=== PATIENT | female | born 1980 | race Caucasian/White ===

== ENCOUNTER → 2016-06-11 | Outpatient (CLI) | payer OTHER ==
--- NOTE | 2016-06-11 15:36 | US ---
June 11, [address] Nelson Chairez, Thank you for requesting consultation and a detailed obstetrical ultrasound for Mrs. Watts secondary to advanced maternal age. As you know, Mary is a 35 year-old 2, para 1001. Her due sherwin e is 10/30/16 by LMP and early ultrasound. Her current gestational age based on this dating is 19 we eks 6 days. Her genetic screening revealed a reassuring NIPT. Her first was complicated b y a chorioangioma which required serial surveillance in her first . She delivered vaginally at term. ULTRASOUND Number of fetuses: 1 Placental location: Anterior; no evidence of previa Placental Cord Insertion: Intraplacental presentation: Breech Cervix: 3.4 cm viewed transabdominally Maximum vertical pocket: 4.4 cm The adnexa were evaluated. No pathology was seen. Right ovary is visualized and appears normal it measures 3.7 x 2.3 x 1.7 cm. Left ovary is visualized and appears normal. It measures 2.7 x 1.4 x 2.9 cm. MEASUREMENTS: Biparietal diameter: 48 mm 20 weeks, 5 days Head circumference: 176 mm 20 weeks, 1 days Abdominal circumference: 160 mm 21 weeks, 1 days Femur length: 32 mm 20 weeks, 1 days Humerus length: 30 mm 20 weeks, 0 days Transcerebellar diameter: 20 mm 19 weeks, 1 days Average ultrasound age: 20 weeks, 4 days Estimated weight: 363 gm weight percentile: 84 % ANATOMY Supratentorial brain: Normal including choroids, falx and cavum septum pellucidum Lateral Ventricle: Normal; measurement: 5.8 mm Posterior fossa: Normal including the cerebellum and cisterna magna Spine: Normal Nuchal fold: Normal; measurement: 3.9 mm Face: Normal views of the lip and nose area Profile: Normal Palate: Normal appearance of the alveolar ridge Cardiac Exam: Four chamber view of the heart: Normal including intraventricular septum Left Ventricular Outflow Tract: Normal Right Ventricular Outflow Tract: Normal 3 Vessel View: Normal Tracheal View: Suboptimal Aortic Arch: Normal Ductal Arch: Normal SVC/IVC: Limited; appear normal Heart Rate: 146 bpm Diaphragm: No overt abnormalities have been detected Stomach: Normal Umbilical cord insertion: Normal Right kidney: Normal Left kidney: Normal Bladder: Normal Number of cord vessels: Three Upper extremities: Normal including the number, and architecture Lower extremities: Normal including the number and architecture Gender: Female IMPRESSION: 1. Intrauterine at 19w 6d, DEBI of 10/30/16. This is consistent with her previously establ ished dates. 2. Today's sonogram reveals a normal appearing fetus. 3. Cervical length measures 3.4 cm, and is without evidence of insufficiency. 4. Advanced maternal age; reassuring NIPT RECOMMENDATIONS: I was pleased to review today's ultrasound with your patient. I have reassured her that the gr owth and amniotic fluid volume are appropriate for this gestational age. The detailed anatomic surve y did not reveal any overt abnormalities. Mary is aware that ultrasound is a screening to ol and cannot provide definitive genetic diagnosis. Should she desire definitive genetic diagnosis, she would need to have a genetic amniocentesis performed. After our discussion regarding the procedu re, benefits, risks, alternatives, and limitations to the information received Mary DECLINES amni ocentesis. Future ultrasound and consultation is left to your clinical discretion. Thank you for allowing me the opportunity to consult and evaluate your patient. Should you have any questions or concerns please do not hesitate to contact me. This visit was approximately 15 minutes in length with 10 minutes spent in direct face to face consultation reviewing aneuploidy screening ve rsus definitive genetic diagnosis. Sincerely, Jacey Andrade MD [employer] Specialist Maternal Medicine Department of Obstetrics & Gynecology [facility]
--- NOTE | 2016-06-11 17:15 | US ---
Complete Obstetric Ultrasound History: 35-year-old with estimated gestational age of 19 weeks 6 days and EDC of October 30, 2016, hist ory of chorioangioma with previous . Comparison: OB ultrasound May 03, 2016. Findings: Number: 1 Presentation: Breech Placental location: Anterior. No previa. Cervix: Closed, measuring 3.4 cm transabdominally Maximum vertical pocket: 4.4 cm The ovaries are normal. Biometry: Biparietal diameter: 48 mm 20 weeks, 5 days Head circumference: 176 mm 20 weeks, 1 days Abdominal circumference: 160 mm 21 weeks, 1 days Femur length: 32 mm 20 weeks, 1 days Humeral length: 30 mm 20 weeks, 0 days Transcerebellar diameter: 20 mm 19 weeks, 1 days Average ultrasound age: 20 weeks, 4 days EDC based on today's average ultrasound age: 20 weeks 4 days Estimated weight is 363 grams +/- 53 grams. The estimated weight percentile is 84% based on previous dating. ANATOMY SURVEY: Supratentorial brain: Normal Posterior fossa: Normal Spine: Normal Nose and lips: Normal Heart: Four chamber heart with heart rate of 146 . Stomach: Normal Umbilical cord insertion: Normal Kidneys: Normal Bladder: Normal Number of cord vessels: Three Upper extremities: Visualized Lower extremities: Visualized Impression: 1. Living single intrauterine with size concordant with dates. 2. Unremarkable anatomy. Please see separate dictation for consultation performed by Jacey Andrade MD, the same day.
== END ==
LOC: FIMAGING 14:38
PROVIDERS: ATTEND Obstetrics & Gynecology
DX: O09.522 Supervision of elderly multigravida, second trimester (principal); Z3A.19 19 weeks gestation of pregnancy

== ENCOUNTER 2016-10-24 07:21 | Observation (INO) | payer OTHER | END 2016-10-24 08:09 | disposition home or self-care (01) | LOC: FLD 07:21 | PROVIDERS: ADMIT Obstetrics & Gynecology; ATTEND Obstetrics & Gynecology | DX: O36.8130 Decreased fetal movements, third trimester, not applicable or unspecified (principal); O09.523 Supervision of elderly multigravida, third trimester; Z3A.39 39 weeks gestation of pregnancy | CPT/HCPCS: 59025; G0378 ==

== ENCOUNTER 2016-10-28 02:51 | Inpatient (IN) | payer OTHER ==
[2016-10-28] MEDS ORDERED: OXYTOCIN/RINGERS LACTATE 1,000 ML IV PRN (03:20)
[2016-10-28] MEDS ORDERED: LR 1,000 ML IV PRN (03:20)
[2016-10-28] MEDS ORDERED: TERBUTALINE SULFATE 1 MG/ML VIAL IV PRN (03:20)
[2016-10-28] MEDS ORDERED: EPSOM SALT 454 GM TP PRN (03:20)
[2016-10-28] MEDS ORDERED: OLIVE OIL 118 ML BTL MISC PRN (03:20)
[2016-10-28] MEDS ORDERED: LIDOCAINE 1% 300 MG/30 ML SDV ONE ×2 (03:24→03:28)
[2016-10-28] MEDS ORDERED: AMMONIA AROMATIC 1 EACH AMP IH ONE ×2 (03:24→03:29)
[2016-10-28] MEDS ORDERED: TERBUTALINE SULFATE 1 MG/ML VIAL ONE ×2 (03:24→03:29)
[2016-10-28] MEDS ORDERED: OXYTOCIN 10 UNIT/ML VIAL ONE ×2 (03:24→03:29)
[2016-10-28] MEDS ORDERED: OLIVE OIL 118 ML BTL ONE ×2 (03:24→03:29)
[2016-10-28] MEDS ORDERED: MISOPROSTOL 200 MCG TAB ONE ×2 (03:25→03:30)
[2016-10-28] MEDS ORDERED: CLINDAMYCIN 900 MG/DEXTROSE/50 ML BAG IV ONE (03:26)
[2016-10-28] MEDS ORDERED: OXYTOCIN/RINGERS LACTATE 20 UNIT/1,000 ML BAG IV ONE (03:55)
[2016-10-28 04:01] LABS: % IMMATURE GRANULYOCYTES 0.4 % (0.0-1.1); ABSOLUTE IMMATURE GRANULOCYTES 0.03 10^3/uL (0.00-0.10); ADD DIFF? NO; ADD MORPH? NO; ADD SCAN? NO; ATYPICAL LYMPHOCYTE FLAG 10 (0-99); FRAGMENT RBC FLAG 0 (0-99); HEMATOCRIT 43.7 % (38.0-47.0); HEMOGLOBIN 15.2 g/dL (12.6-16.3); LEFT SHIFT FLG 0 (0-99); LIPEMIA HEMOLYSIS FLAG 90 (0-99); MEAN CELL HEMOGLOBIN 32.6 pg (27.9-34.1); MEAN CELL HEMOGLOBIN CONCENTR. 34.8 g/dL (32.4-36.7); MEAN CELL VOLUME 93.8 fL (81.5-99.8); MEAN PLATELET VOLUME 12.8 fL (8.7-11.7); PLATELET CLUMPS FLAG 0 (0-99); PLATELET COUNT 154 10^3/uL (150-400); RED BLOOD CELL COUNT 4.66 10^6/uL (4.18-5.33); RED CELL DISTRIBUTION WIDTH 12.5 % (11.5-15.2)
[2016-10-28 04:20] LABS: ALANINE AMINOTRANSFERASE 22 IU/L (9-52); ASPARTATE AMINOTRANSFERASE 22 IU/L (14-46); BILIRUBIN,TOTAL 0.5 mg/dL (0.1-1.4); BILIRUBIN-CONJUGATED 0.3 mg/dL (0.0-0.5); BILIRUBIN-UNCONJUGATED 0.2 mg/dL (0.0-1.1); CREATININE 0.7 mg/dL (0.6-1.0); GLOMERULAR FILTRATION RATE > 60; LACTATE DEHYDROGENASE 424 IU/L (313-618); URIC ACID 6.4 mg/dL (2.5-6.8)
[2016-10-28] MEDS ORDERED: METHYLERGONOVINE MAL 0.2 MG/ML INJ ONE (04:35)
[2016-10-28] MEDS ORDERED: fentaNYL 100 MCG/2 ML INJ ONE ×2 (04:39→05:08)
[2016-10-28] MEDS ORDERED: fentaNYL 100 MCG/2 ML INJ IVP ONE (04:40)
[2016-10-28] MEDS ORDERED: HEMABATE 250 MCG/1 ML AMP IM ONE (04:44)
[2016-10-28] MEDS ORDERED: DIPHENOXYLATE/ATROPINE LOMOTIL 1 TAB ONE (04:55)
[2016-10-28] MEDS ORDERED: ONDANSETRON 4 MG/2 ML VIAL ONE (05:12)
[2016-10-28] MEDS ORDERED: PROPOFOL 200 MG/20 ML VIAL ONE (05:25)
[2016-10-28] MEDS ORDERED: LIDOCAINE 2% 5 ML SDV ONE (05:25)
[2016-10-28] MEDS ORDERED: ceFAZolin 1 GM VIAL ONE ×2 (05:31)
[2016-10-28] MEDS ORDERED: RANITIDINE 50 MG/2 ML VIAL ONE (05:31)
[2016-10-28] MEDS ORDERED: PHENYLEPHRINE HCL 100 MCG/ML SYR ONE (05:41)
[2016-10-28] MEDS ORDERED: CLINDAMYCIN 900 MG/DEXTROSE 50 ML IV SCH (06:00)
[2016-10-28] MEDS ORDERED: MEPERIDINE 25 MG/ML SYR ONE (06:06)
--- NOTE | 2016-10-28 07:07 | OBPROC ---
- Labor and Delivery Onset of Contractions Date: 10/27/16 Onset of Contractions Time: 23:00 Onset of Contractions Type: Spontaneous Rupture of Membranes Date: 10/27/16 Rupture of Membranes Time: 22:30 Rupture of Membranes Type: Spontaneous Amniotic Fluid Color: Clear Dilation Complete Time: 04:00 Delivery Type: Spontaneous Placenta Delivery Date: 10/28/16 Placenta Delivery Time: 04:30 Episiotomy/Laceration: Cervical Repair: 3-0 (see op note) EBL: 1300 Complications: Post Hemorrhage, Uterine Atony, Other (Specify) (retained products of conception) - Medications Labor Augmentation/Induction Meds Used: None - Info Infant A Delivery Date: 10/28/16 Delivery Time: 04:13 Sex of : Female Score (1 Min): 8 Score (10 Min): 10 (Spontaneous delivery of infant. Delayed cord clamping x 3 min at pts request. Cord clamped and cut and IV pit 20 units started. Placenta delivered intact with fundal massage and gentle cord traction. No perineal laceration. Uterine atony noted after delivery of placenta. IV was not flowing well so pitocin 10 units IM was given along with bimanual massage. Ongoing atony was noted and 800 mcg misoprostol was given buccally. 2nd IV was placed. The bladder was drained with 50 ml urine. A bimanual was performed and a placental cotyledon was removed consistent with retained POC. Fundal tone improved but there was ongoing atony of SHONDA and bleeding. The ultrasound was called for. Methergine 0.2 mg was given IM. Massage was continued. US showed a possible small amount of clot/tissue at the fundus. Anesthesia was called into the hospital. Atony was ongoing and hemabate 0.25 mcg IM was given. At this time EBL was 1000 ml. Atony was now significantly improved however there was ongoing mild to moderate bleeding. The patient remained hemodynamically stable with normal vital signs. She was consented verbally to proceed to the OR for exam under anesthesia and D&C. See op note for more details.)
[2016-10-28] MEDS ORDERED: HYDROCORTISONE 0.5% CREAM TP PRN (07:19)
[2016-10-28] MEDS ORDERED: SIMETHICONE 80 MG TAB CHEW PO PRN (07:19)
[2016-10-28] MEDS ORDERED: ACETAMINOPHEN 325 MG TAB PO PRN (07:19)
[2016-10-28] MEDS ORDERED: OXYCODONE/APAP 5/325 TAB PO PRN (07:19)
[2016-10-28] MEDS ORDERED: OXYTOCIN/RINGERS LACTATE 1,000 ML IV SCH (07:30)
--- NOTE | 2016-10-28 07:36 | GHP ---
[f rep st] HISTORY AND PHYSICAL DATE OF ADMISSION: 10/28/2016 Please note, this is a late entry history and physical. The patient initially arrived to the hospital at 3:00 a.m. and was evaluated at that time, but has had ongoing clinical care needs and so charting is not being done until 06:55 a.m. CHIEF COMPLAINT: Leaking fluid and contractions. HISTORY OF PRESENT ILLNESS: The patient is a 36-year-old, G2, P1-0-0-1 at 39 weeks and 5 days gestational age with a history of a term vaginal delivery who called the [facility] advice line at 2:10 a.m. At that time she stated that her bag of water had broken at 10:30 p.m. the night before and about 1 hour later she started having contractions. I advised her to present to the hospital for evaluation. Of note, she is GBS positive. Her has been complicated by hypothyroidism on Synthroid, followed by endocrine. She had normal genetic screening and is advanced maternal age. 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 PAST MEDICAL HISTORY: High cholesterol, hypothyroidism, PCOS. PAST SURGICAL HISTORY: None. MEDICATIONS: vitamins, DHA, vitamin D3, calcium and Synthroid 150 mcg. ALLERGIES: Amoxicillin to which she gets a rash. SOCIAL HISTORY: She is to , [place]. They have 1 daughter at home who was born in 2014. The patient does not use alcohol or drugs or tobacco products. REVIEW OF SYSTEMS: Negative except for stated in the HPI. OBJECTIVE: VITAL SIGNS: Initial blood pressure 141/83, heart rate 65, respirations 18, temperature 36.4. GENERAL ASSESSMENT: Alert, awake, in moderate to significant distress with contractions. RESPIRATIONS: Nonlabored. CARDIOVASCULAR: Regular rate and rhythm. ABDOMEN: Gravid, soft, nontender. Vertex by Robe. EFW 7 pounds by Robe. EXTREMITIES: No edema. Sterile vaginal exam, initially completed by SHERICE Pond, was 5 cm dilated, 90% effaced, and she was noted to have rupture of membranes with clear fluid. LABS: Blood type A positive. Antibody screen negative. Initial hematocrit 39. Normal Pap smear. Immune to rubella. Nonreactive to RPR, hepatitis B, HIV. Negative urine culture. Negative gonorrhea and chlamydia testing. GBS positive. She declined vaccines including Tdap and flu shot. ASSESSMENT AND PLAN: The patient is a 36-year-old, G2, P1-0-0-1 at 39 weeks 5 days by last menstrual period and 1st trimester ultrasound who presents in active labor with ruptured membranes. She is GBS positive. Her current status is reassuring with a category 1 tracing. We will plan to admit to Labor and Delivery. She desires an unmedicated natural . As she has an allergy to amoxicillin and she has a strain of GBS that is sensitive to clindamycin, we will initiate GBS prophylaxis with clindamycin 900 mg IV. Routine intrapartum care. Continuous monitoring. Expect vaginal delivery. /[id number]/MODL MTDD
--- NOTE | 2016-10-28 08:51 | GOP ---
[f rep st] OPERATIVE REPORT DATE OF OPERATION: SURGEON: Barb Dubon MD ANESTHESIA: Spinal. ANESTHESIOLOGIST: Mu Stephens DO PREOPERATIVE DIAGNOSIS: hemorrhage with concern for retained products of conception. POSTOPERATIVE DIAGNOSIS: hemorrhage, retained products of conception , and cervical laceration. PROCEDURE PERFORMED: Exam under anesthesia, dilation and curettage under direct ultrasound guidance, repair of cervical laceration. FINDINGS: Small amount of retained clot and tissue in the uterus. Four cm cervical laceration at 6:00 extending almost up to the lower uterine segment. No other vaginal or perineal lacerations noted. ESTIMATED BLOOD LOSS: 300 mL. INDICATIONS: Patient is a 36-year-old, G2, now P2-0-0-2, who is status post an uncomplicated unmedicated vaginal delivery and delivery of placenta. After delivery, she had uterine atony that was initially not responsive to uterotonics. She had been given Pitocin and Cytotec 800 mcg, and during bimanual massage an accessory placental cotyledon was discovered and removed. She had ongoing atony, and additional uterotonics, including Methergine and Hemabate were given. Despite improvement in tone after these interventions she had ongoing bleeding with a total EBL of 1000 mL in the delivery room, and there was concern for either a non visualized laceration or retained products, so she was verbally consented to proceed to the operating room for exam under anesthesia and D and C. We reviewed the risks and benefits of the surgery, and she and her agreed. DESCRIPTION OF PROCEDURE: The patient was taken to the operating room, and spinal anesthetic was performed. She was prepped and draped in the normal sterile fashion in dorsal lithotomy presentation. A Jung catheter was placed. 2 mg IV Ancef was given intravenously. A time-out was performed with all parties present in agreement with the patient and procedure. A Klopfer speculum was placed, and the anterior lip of the cervix was grasped with a ring forceps. Under direct ultrasound guidance, a gentle curettage was done, first anteriorly and then posteriorly, using the banjo curette, and a small amount of placental tissue and membranes were evacuated. Next, a suction curettage was performed using a 12 mm rigid curette, and additional products were removed. The uterus was noted to have a thin uterine stripe at this time with a gritty texture, and there was no evidence of further retained products. The patient was noted to have ongoing bleeding at this time. A thorough exam was done, demonstrating a cervical laceration at 6 o'clock, extending from the proximal end of the cervix distally all the way almost up to the lower uterine segment. This was then repaired with a running locked stitch of 0 Vicryl. There was no further active bleeding after repair of the cervical laceration, however, there was some mild, ongoing oozing from the raw edges of the cervix, and so the decision was made to place a vaginal packing. Hemostasis was noted at this time. Total EBL during this procedure was 300 mL, bringing the entire EBL for the delivery and surgery to 1300 mL. The patient remained hemodynamically stable. Counts were correct x2. She was taken to her delivery room in good condition. FLUIDS: 1 L of crystalloid. COMPLICATIONS: None. /[id number]/MODL MTDD
[2016-10-28] MEDS: IBUPROFEN 600 MG TAB PO PRN ×3 (10:04→22:20)
[2016-10-28] MEDS ORDERED: ACETAMINOPHEN 500 MG TAB PO ONE (23:30)
[2016-10-29] MEDS: IBUPROFEN 600 MG TAB PO PRN ×4 (04:52→23:50)
[2016-10-29] MEDS: DOCUSATE SODIUM 100 MG CAP PO PRN (09:26)
--- NOTE | 2016-10-29 11:17 | OBPROG ---
OBG Progress Note Assessment/Plan: Assessment: 36 y/o PPD#1 s/p complicated by PPH, D&C and cervical laceration repair - hemodynamically stable and doing well Plan: 1) Continue routine PP care 2) A+/RI 3) Hx PPH - stable, HCT 27, feeling well. No symptoms of anemia. 4) Dispo: Continue inpatient care for monitoring of anemia due to complicated delivery course. 10/29/16 11:16 Subjective: Pt ambulating, voiding, bleeding minimal since removal of vaginal packing, breast feeding progressing. Denies any lightheadedness or dizziness. Objective: 10/29/16 05:50 10/28/16 03:45 Patient ABO/Rh A POSITIVE 10/28/16 03:50 Uric Acid 6.4 mg/dL (2.5-6.8) 10/28/16 03:45 Total Bilirubin 0.5 mg/dL (0.1-1.4) 10/28/16 03:45 Conjugated Bilirubin 0.3 mg/dL (0.0-0.5) 10/28/16 03:45 Unconjugated Bilirubin 0.2 mg/dL (0.0-1.1) 10/28/16 03:45 AST 22 IU/L (14-46) 10/28/16 03:45 ALT 22 IU/L (9-52) 10/28/16 03:45 Lactate Dehydrogenase 424 IU/L (313-618) 10/28/16 03:45 Temp Pulse Resp BP Pulse Ox 36.8 C 76 16 101/66 96 10/29/16 08:35 10/29/16 08:35 10/29/16 08:35 10/29/16 08:35 10/29/16 08:35 Uterine Position/Fundal Height: Umbilicus -1 Uterine Tone: Firm ICD10 Worksheet Patient Problems: Problems Problem Status Onset Epiglottitis Acute
[2016-10-29 23:21] VITALS: O2SAT 95
[2016-10-30] MEDS: IBUPROFEN 600 MG TAB PO PRN (05:50)
--- NOTE | 2016-10-30 08:59 | OBGCSDC ---
General Delivery Information - General Info : 2 Para: 2 Delivery Physician/CNM: Acacia Merino Admission Date: 10/28/16 Labs: Patient ABO/Rh A POSITIVE 10/28/16 03:50 Hct 27.3 % (38.0-47.0) L D 10/29/16 05:50 Vaginal - Diagnosis IUP (Weeks): 39 Labor: Spontaneous Rupture of Membranes Type: Spontaneous Amniotic Fluid Color: Clear Laceration: 2nd Degree Repair: 3-0 (see op note) Complications: Post Hemorrhage, Uterine Atony, Other (Specify) (retained products of conception) - Operations/Procedures Delivery Type: Spontaneous Procedures: Amniotomy Anesthesia: Epidural - Delivery EBL: 1300 Discharge Information - Discharge Information Discharge Medications: Ibuprofen, Percocet, Vitamins Condition: Good Instruction/Follow Up: Six Weeks Discharge Physician/CNM: Haylee Rodríguez Discharge Date: 10/30/16 Dictated: No
[2016-10-30] MEDS ORDERED: IRON POLYSAC/IRON HEME 28 MG TAB PO SCH (09:00)
[2016-10-30 10:41] VITALS: BP 109/74; PULSE 82; RESP 16; TEMP 98.4
[2016-10-30] MEDS: DOCUSATE SODIUM 100 MG CAP PO PRN (10:59)
== END 2016-10-30 11:30 | disposition home or self-care (01) | DRG 767 ==
LOC: FLD 02:51 → OBSVTOIN 03:20 → FOB 11:08
PROVIDERS: ADMIT Obstetrics & Gynecology; ATTEND Obstetrics & Gynecology
PROC: 10E0XZZ Delivery of Products of Conception, External Approach (ICD-10-PCS; principal; 2016-10-28)
PROC: 10907ZC Drainage of Amniotic Fluid, Therapeutic from Products of Conception, Via Natural or Artificial Opening (ICD-10-PCS; principal; 2016-10-28)
PROC: 10D17ZZ Extraction of Products of Conception, Retained, Via Natural or Artificial Opening (ICD-10-PCS; principal; 2016-10-28)
PROC: 0UQC7ZZ Repair Cervix, Via Natural or Artificial Opening (ICD-10-PCS; principal; 2016-10-28)
PROC: 3E0 Administration, Physiological Systems and Anatomical Regions, Introduction (ICD-10-PCS; principal; 2016-10-28)
DX: O71.3 Obstetric laceration of cervix (principal); O72.1 Other immediate postpartum hemorrhage; O72.2 Delayed and secondary postpartum hemorrhage; O99.824 Streptococcus B carrier state complicating childbirth; O99.284 Endocrine, nutritional and metabolic diseases complicating childbirth; E03.9 Hypothyroidism, unspecified; Z3A.39 39 weeks gestation of pregnancy; Z37.0 Single live birth
CPT/HCPCS: J0690; J2210; J2370; J2405; J2590; J2704; J2780; J3010; J3105